=== PATIENT | female | born 1995 | race Caucasian/White ===

== ENCOUNTER 2025-05-27 09:00 | Emergency (ER) | payer MEDICAID, SELFPAY ==
[2025-05-27 09:01] VITALS: BP 112/73; PULSE 112; RESP 16; TEMP 36.3; O2SAT 98
--- NOTE | 2025-05-27 09:22 | EDS_ITS ---
HPI History of Present Illness Chief Complaint: General Illness Narrative Narrative: 29-year-old female presents to the emergency department with irregular vaginal bleeding that she has had for the last 10 months. States she cannot see her [facility]. Additionally, she states she thinks that she has a rare . When questioned further, she states it is the type that is unable to be detected by urine or blood work. Quite frankly, she states that she would like an ultrasound because of her irregular vaginal bleeding. She has not been able to follow-up with an [facility]LE [facility]. She states that she has pelvic cramping, and she began having vaginal bleeding 2 days ago. She states there are months where she will not have a period, and that her vaginal bleeding is shorter than regular menses. She endorses pelvic pain for the last 10 to 11 months as well. PFSH PFSH Allergy/AdvReac Type Severity Reaction Status Date / Time Seasonal Allergies: Uncoded Allergy Intermediate Itching Verified 05/27/25 09:05 (environmental) Social History Smoking Status: Never smoker ROS ROS ED ROS Narrative Review of systems positive for pelvic pain and irregular vaginal bleeding. No exacerbating or alleviating factors. Endorses nausea and vomiting over the last 11 months as well. EXAM Physical Exam Narrative Exam Narrative: Afebrile. Vital signs noted. Nontoxic-appearing. Cardiovascular examination reveals regular tachycardia. Lungs are clear to auscultation bilaterally. Abdomen is soft and minimal suprapubic tenderness with positive bowel sounds. No guarding or rebound. Neurological examination nonfocal, nonlateralizing. Const Vital Signs: 05/27/25 09:01 05/27/25 09:21 Temperature 97.4 F L Temperature Source Temporal Pulse Rate 112 H Respiratory Rate 16 Respiratory Pattern Normal Blood Pressure 112/73 Blood Pressure Mean 86 Pulse Ox 98 Oxygen Delivery Method Room Air MDM MDM MDM Narrative Medical decision making narrative: Differential diagnosis includes but not limited to ectopic versus intrauterine versus uterine fibroid versus dysfunctional uterine bleeding. Also the differential would be pelvic pain of unknown etiology. I have low suspicion for ovarian torsion. She may have ovarian cysts as well. Cystitis is also in the differential. In review of her urinalysis, WBC count normal at 0-5, 0 bacteria. I do not feel antibiotics are indicated. Serum test is negative. Hemoglobin normal at 13.6, hematocrit 38.7, platelet count normal at 329. I reviewed the radiology report of the ultrasound and there is no evidence of ovarian torsion. Patient was reassured that this is a negative pelvic ultrasound and that there is no . She will follow-up with her [facility] as an outpatient. Return instructions reviewed. Disposition is discharged home in stable condition. History & Record Review Additional record(s) reviewed:: No prior records Lab Data Attestation: I reviewed the patient's lab results. Labs: Laboratory Results - last 24 hr 05/27/25 05/27/25 09:35 10:05 WBC 5.1 RBC 4.45 Hgb 13.6 Hct 38.7 MCV 87.0 MCH 30.6 MCHC 35.1 RDW Std Deviation 39.1 RDW Coeff of Martha 12.3 Plt Count 329 MPV 9.2 Immature Gran % (Auto) 0.400 Neut % (Auto) 55.4 Lymph % (Auto) 33.1 Clark % (Auto) 8.9 Eos % (Auto) 1.6 Baso % (Auto) 0.6 Absolute Neuts (auto) 2.8 Absolute Lymphs (auto) 1.68 Nucleated RBC % 0 Serum , Qual NEGATIVE Urine Color Yellow Urine Clarity Clear Urine pH 8.0 Ur Specific [place] 1.010 Urine Protein 30 H Urine Glucose (UA) Normal Urine Ketones Negative Urine Occult Blood 50 H Urine Nitrite Negative Urine Bilirubin Negative Urine Urobilinogen Normal Ur Leukocyte Esterase Negative Urine RBC 0-5 SEEN Urine WBC 0-5 SEEN Ur Squamous Epith Cells 0-5 SEEN Urine Bacteria 0 SEEN Urine Mucus 0 SEEN Radiography Diagnostic Testing: Clinical Impression(s) from Imaging Studies Transvaginal US 05/27/25 10:39 IMPRESSION: Negative pelvic ultrasound. The endometrium measures 0.2 cm. Reading Location: [facility] Discharge Plan Triage Chief Complaint: General Illness Other Complaint: Mental Health ED Provider: Andry Wilde Dx/Rx/DC Orders Clinical Impression: Abnormal vaginal bleeding, Pelvic pain Instructions: ED Dysfunctional Uterine Bleeding, ED Pelvic Pain, Unknown Cause Primary Care Provider: Raúl Curtis Referrals: Raúl Curtis MD [Primary Care Provider, Medical] Activity Restrictions/Additional Instructions: Follow-up with your [facility] as soon as possible. You had negative ultrasound today. Print Language: Romansh Disposition Disposition: Home, Self Care
[2025-05-27 09:49] LABS: Mucous, Urine 0 SEEN /hpf (<or=2+)
[2025-05-27 09:53] LABS: Color, Urine Yellow (Yellow); Glucose, Dipstick Normal (Normal); Ketone-Dipstick Negative (Negative); Leukocyte Esterase-Dipstick Negative /ul (Negative); Nitrite-Dipstick Negative (Negative); Occult Blood-Urine 50 /ul (Negative); Protein-Dipstick 30 mg/dl (Negative); Specific Gravity, Urine 1.010 (1.002-1.030); Urine Bilirubin Dipstick Negative (Negative)
[2025-05-27 10:02] LABS: Red Blood Cells-Urine 0-5 SEEN /hpf (0-5); Squamous Epithelial Cells - UA 0-5 SEEN /hpf (5-10)
[2025-05-27 10:31] LABS: Hematocrit 38.7 % (37-47); Hemoglobin 13.6 g/dL (12.0-15.0); Immature Granulocytes Count 0.020 X10^3/uL (0.0-0.0); Mean Corp Hgb Conc 35.1 g/dL (32-36); Mean Corpuscular Volume 87.0 fL (81-99); Mean Platelet Vol. 9.2 fl (6.2-12.0); NRBC Flagged by Analyzer 0 % (0-5); Platelet Count 329 K/mm3 (150-450); RBC Distribution Width CV 12.3 % (11.6-14.6); RBC Distribution Width SD 39.1 fl (35.1-43.9); Red Blood Count 4.45 M/mm3 (4.2-5.4); White Blood Count 5.1 K/mm3 (4.4-11.0)
[2025-05-27 10:36] LABS: Internal QC Validated? YES +Cl - CLEAR BKGD; Pregnancy, Serum, hCG Quali. NEGATIVE Negative; Record Kit Lot#, Serum Preg. 0000980607
--- NOTE | 2025-05-27 10:39 | US_ITS ---
PROCEDURE: TRANSVAGINAL NON- 05/27/2025 REASON FOR EXAM: PAIN, VAGINAL BLEEDING TECHNIQUE: Procedure Code: USTVAG Modality: US Procedure: TRANSVAGINAL NON- COMPARISON: None FINDINGS: The uterus measures 6.7 x 4.5 x 3.2 cm. The uterus is anteflexed and retroverted. There is no uterine fibroid or mass. The endometrium measures 2 mm. The right ovary measures 3.9 x 2.7 x 2.0 cm, 11 cc, and the left 2.7 x 1.8 x 1.4 cm. There is no adnexal mass or free fluid. There is normal vascular flow demonstrated in the right and left ovary. Normal appear follicles are visible in the right and left ovary. There is no adnexal mass or free fluid. US/Transvaginal Non- IMPRESSION: Negative pelvic ultrasound. The endometrium measures 0.2 cm. Reading Location: [facility]
[2025-05-27 11:42] VITALS: BP 124/96; PULSE 82; RESP 16; TEMP 36.6; O2SAT 99
== END 2025-05-27 11:43 | disposition home or self-care (01) ==
PROVIDERS: Emergency Provider Emergency Medicine; PCP Family Medicine; Visit Provider Emergency Medicine
DX: N93.9 Abnormal uterine and vaginal bleeding, unspecified (principal); R10.20 Pelvic and perineal pain unspecified side
CPT/HCPCS: 76830; 81001; 84703; 85025; 99283; A4216